=== PATIENT | female | born 1970 | race Caucasian/White ===

== ENCOUNTER 2021-12-30 06:18 | Day surgery (SDC) | payer OTHER ==
[2021-12-28 12:19] VITALS: BMI 20.1
[2021-12-30 06:54] VITALS: RESP 16
[2021-12-30] MEDS ORDERED: BUPIVACAINE HCL/EPINEPHRINE/PF 30 ML VIAL IJ ONE (07:13)
[2021-12-30] MEDS ORDERED: PROPOFOL 20 ML ONE (07:14)
[2021-12-30] MEDS ORDERED: SUCCINYLCHOLINE CHLORIDE 200 MG/10 ML SYRINGE ONE (07:15)
[2021-12-30] MEDS ORDERED: MIDAZOLAM HCL 2 MG/2 ML SINGLE DOSE VIAL ONE (07:15)
[2021-12-30] MEDS ORDERED: ceFAZolin SODIUM 1 GM VIAL ONE (07:44)
[2021-12-30] MEDS ORDERED: DEXAMETHASONE SOD PHOSPHATE 4 MG/1 ML VIAL ONE (07:45)
[2021-12-30] MEDS ORDERED: ONDANSETRON 4 MG/2 ML VIAL ONE (07:45)
[2021-12-30 08:33] VITALS: TEMP 97.5
[2021-12-30 09:14] VITALS: BP 99/60; PULSE 54
== END 2021-12-30 09:25 | disposition home or self-care (01) ==
LOC: FASU 06:18
PROVIDERS: ATTEND Plastic Surgery
PROC: 0HX7XZZ Transfer Abdomen Skin, External Approach (ICD-10-PCS; 2021-12-30)
PROC: 0JB80ZX Excision of Abdomen Subcutaneous Tissue and Fascia, Open Approach, Diagnostic (ICD-10-PCS; principal; 2021-12-30 07:47)
DX: D17.1 Benign lipomatous neoplasm of skin and subcutaneous tissue of trunk (principal)
CPT/HCPCS: 88304-TC